=== PATIENT | female | born 1975 | race Two or more races ===

== ENCOUNTER 2017-09-12 13:37 | Emergency (ER) | payer OTHER ==
[~2017-09-12] VITALS: Ht 157.5 cm; Wt 63.5 kg
[2017-09-12 13:42] VITALS: BP 117/77
[2017-09-12] MEDS ORDERED: KETOROLAC TROMETHAMINE INJ 60 MG/2 ML VIAL IM ONE ×2 (14:26→14:30)
== END 2017-09-12 15:13 | disposition home or self-care (01) ==
LOC: ER 13:38
DX: R51 Headache (principal); E03.9 Hypothyroidism, unspecified
CPT/HCPCS: 96372; 99283; A4606; J1885; Z7610

== ENCOUNTER 2018-06-05 22:37 | Emergency (ER) | payer OTHER ==
[~2018-06-05] VITALS: Ht 157.5 cm; Wt 63.5 kg
[2018-06-05 23:57] VITALS: BP 111/59
== END 2018-06-06 02:06 | disposition home or self-care (01) ==
LOC: ER 22:42
DX: S62.002A Unspecified fracture of navicular [scaphoid] bone of left wrist, initial encounter for closed fracture (principal); E03.9 Hypothyroidism, unspecified; W20.8XXA Other cause of strike by thrown, projected or falling object, initial encounter; Y93.89 Activity, other specified; Y92.89 Other specified places as the place of occurrence of the external cause; Y99.8 Other external cause status
CPT/HCPCS: 29125; 73110; 73130; 99283; A4606

== ENCOUNTER 2018-06-10 07:45 | Emergency (ER) | payer OTHER ==
[~2018-06-10] VITALS: Ht 157.5 cm; Wt 63.5 kg
[2018-06-10] MEDS ORDERED: ONDANSETRON HCL/PF 4 MG/2 ML VIAL ONE (08:12)
[2018-06-10 08:24] LABS: BASOPHILS # (AUTO) 0.1 /CMM (0.0-0.2); BASOPHILS % (AUTO) 0.8 % (0.0-2.0); EOSINOPHILS % (AUTO) 6.7 % (0.0-6.0); HEMATOCRIT 33 % (33-45); HEMOGLOBIN 10.1 g/dL (11.5-14.8); LYMPHOCYTES % (AUTO) 30.4 % (20.0-44.0); MEAN CORPUSCULAR HGB CONC 31 g/dl (31.0-36.0); MEAN CORPUSCULAR VOLUME 75 fL (82-100); MONOCYTES # (AUTO) 0.5 /CMM (0.1-1.30); MONOCYTES % (AUTO) 7.7 % (2.0-12.0); NEUTROPHILS # (AUTO) 3.5 /CMM (1.8-8.9); NEUTROPHILS % (AUTO) 54.4 % (43.0-81.0); PLATELET COUNT (AUTO) 308 /CMM (150-450); RED BLOOD CELL COUNT(AUTO) 4.39 MIL/uL (4.0-5.2); WHITE BLOOD COUNT (AUTO) 6.5 K/uL (4.3-11.0)
[2018-06-10] MEDS ORDERED: IV NS 0.9% 500 ML BAG IV ONE (08:30)
[2018-06-10] MEDS ORDERED: ONDANSETRON HCL/PF 4 MG/2 ML VIAL IVP ONE (08:30)
[2018-06-10 08:31] LABS: CALCIUM, SERUM 9.1 mg/dL (8.5-10.1); CREATININE 0.8 mg/dL (0.6-1.3); POTASSIUM 3.9 mmol/L (3.5-5.1)
[2018-06-10 08:37] LABS: ALBUMIN 3.7 g/dL (3.4-5.0); BILIRUBIN,DIRECT 0.1 mg/dL (0.0-0.2); BILIRUBIN,TOTAL 0.4 mg/dL (0.2-1.0)
[2018-06-10 08:57] LABS: THYROID STIMULATING HORMONE 64.431 uIU/mL (0.358-3.74)
--- NOTE | 2018-06-10 09:23 | NUR ---
for discharge- ACI given verbalized understanding. Home ambulatory in stable condition. No acute distress
[2018-06-10 09:28] VITALS: BP 114/81
--- NOTE | 2018-06-10 09:30 | NUR ---
Patient discharged to home in stable condition. Written and verbal after care instructions given. Patient verbalizes understanding of instruction.IV removed. Catheter intact and site benign. Pressure and 4x4 applied to site. No bleeding noted.
== END 2018-06-10 09:29 | disposition home or self-care (01) ==
LOC: ER 07:47
DX: R53.1 Weakness (principal); R42 Dizziness and giddiness; E03.9 Hypothyroidism, unspecified
CPT/HCPCS: 36415; 80048; 80076; 83690; 84439; 84443; 84481; 85025; 96374; 99283; J2405; J7040

== ENCOUNTER 2018-07-03 02:41 | Inpatient (IN) | payer OTHER ==
[~2018-07-03] VITALS: Ht 157.5 cm; Wt 68.5 kg
[2018-07-03] MEDS ORDERED: ONDANSETRON HCL/PF 4 MG/2 ML VIAL ONE (03:21)
[2018-07-03] MEDS ORDERED: PANTOPRAZOLE 40 MG VIAL ONE (03:21)
[2018-07-03] MEDS ORDERED: IV NS 0.9% 1,000 ML BAG IV ONE (03:30)
[2018-07-03] MEDS ORDERED: PANTOPRAZOLE 40 MG VIAL IV ONE (03:30)
[2018-07-03] MEDS ORDERED: ONDANSETRON HCL/PF 4 MG/2 ML VIAL IVP ONE (03:30)
--- NOTE | 2018-07-03 03:30 | NUR ---
BIBRA 98%. AOX4. ACCOMPANIED BY . PATIENT VERBALIZING OF ABDOMINAL PAIN AND FRESH RED BLOOD STOOL. NO SOB. BREATHING EVEN AND UNLABORED. AFEBRILE. -N/V/D. IV SITE PLACED IN RAC G 20 INTACT AND PATENT. BLOOD DRAWN. AWARE
[2018-07-03 03:39] LABS: CALCIUM, SERUM 8.8 mg/dL (8.5-10.1); CARBON DIOXIDE 25 mmol/L (21-32); CHLORIDE 104 mmol/L (98-107); CREATININE 0.8 mg/dL (0.6-1.3); GLUCOSE 97 mg/dL (74-106); POTASSIUM 3.8 mmol/L (3.5-5.1); SODIUM SERUM 137 mmol/L (136-145); UREA NITROGEN, BLOOD 9 mg/dL (7-18)
[2018-07-03 03:42] LABS: APPEARANCE,URINE Clear (CLEAR); BILIRUBIN,URINE Negative (NEGATIVE); BLOOD, URINE Trace-lysed Ery/uL (NEGATIVE); COLOR,URINE Yellow (YELLOW); KETONES,URINE Negative (NEGATIVE); LEUKOCYTE ESTERASE ,URINE Negative (NEGATIVE); NITRITE, URINE Negative (NEGATIVE); PROTEIN,URINE Negative (NEGATIVE); UGLUCOSE Negative (NEGATIVE); UROBILINOGEN,URINE 0.2 EU/dL (0.2)
[2018-07-03 03:45] LABS: ALANINE AMINOTRANSFERASE 22 U/L (12-78); ALBUMIN 3.8 g/dL (3.4-5.0); ALKALINE PHOSPHATASE 91 U/L (46-116); ASPARTATE AMINOTRANSFERASE 14 U/L (15-37); BILIRUBIN,DIRECT 0.1 mg/dL (0.0-0.2); BILIRUBIN,TOTAL 0.2 mg/dL (0.2-1.0); LIPASE 271 U/L (73-393); TOTAL PROTEIN, SERUM 8.1 g/dL (6.4-8.2)
[2018-07-03 03:51] LABS: BASOPHILS % (AUTO) 0.4 % (0.0-2.0); EOSINOPHILS % (AUTO) 4.9 % (0.0-6.0); HEMATOCRIT 32 % (33-45); HEMOGLOBIN 9.8 g/dL (11.5-14.8); LYMPHOCYTES # (AUTO) 1.8 /CMM (0.8-4.8); LYMPHOCYTES % (AUTO) 21.2 % (20.0-44.0); MEAN CORPUSCULAR HGB CONC 31 g/dl (31.0-36.0); MEAN CORPUSCULAR VOLUME 72 fL (82-100); MONOCYTES # (AUTO) 0.5 /CMM (0.1-1.30); MONOCYTES % (AUTO) 6.1 % (2.0-12.0); NEUTROPHILS # (AUTO) 5.8 /CMM (1.8-8.9); NEUTROPHILS % (AUTO) 67.4 % (43.0-81.0); PLATELET COUNT (AUTO) 287 /CMM (150-450); RED BLOOD CELL COUNT(AUTO) 4.37 MIL/uL (4.0-5.2); WHITE BLOOD COUNT (AUTO) 8.7 K/uL (4.3-11.0)
[2018-07-03 03:58] LABS: BACTERIA,URINE None seen /HPF (None Seen); MUCUS,URINE Few /LPF (None Seen); RBC,URINE 0-2 /HPF (0-2); SQUAMOUS EPITHELIAL CELL,UR Moderate /HPF (None Seen); WBC,URINE 0-2 /HPF (0-3)
--- NOTE | 2018-07-03 05:01 | NUR ---
PICKED UP FOR CT ABDOMEN
[2018-07-03] MEDS ORDERED: LEVO175T7 PO (06:09)
--- NOTE | 2018-07-03 06:24 | NUR ---
TRANSFFERED NED TO [facility] FOR CONINUITY OF CARE, ACCOMPANIED BY . REPORT GIVEN TO LEONEL BAPTISTE
[2018-07-03 06:30] VITALS: BP 105/71
[2018-07-03] MEDS ORDERED: Z GUARD REMEDY 2 OZ OINT TP PRN (06:30)
[2018-07-03] MEDS ORDERED: MAGNESIUM HYDROXIDE 30 ML UDC PO PRN (06:30)
[2018-07-03] MEDS ORDERED: ONDANSETRON HCL/PF 4 MG/2 ML VIAL IVP PRN (06:30)
[2018-07-03] MEDS ORDERED: MAG HYDROX/AL HYDROX/SIMETH 30 ML UDC PO PRN (06:30)
[2018-07-03] MEDS ORDERED: ACETAMINOPHEN 325 MG TABLET PO PRN (06:30)
[2018-07-03] MEDS ORDERED: HYDROCODONE/APAP 5/325MG 1 EACH TABLET PO PRN (06:30)
--- NOTE | 2018-07-03 06:30 | NUR ---
MS RN NOTE: RECEIVE PATIENT FROM ER, NO ACUTE DISTRESS NOTED. BREATHING EVEN AND UNLABORED, NO SOB NOTED. FAMILY AT BEDSIDE. IV TO RAC IN PLACE. VITAL SIGN STABLE. ORIENTED PATIENT TO ROOM AND USE OF CALL LIGHT. BED LOCKED AND IN LOWEST POSITION, CALL LIGHT IN REACH. WILL ENDORSE TO DAY NURSE TO CONTINUE WITH PLAN OF CARE.
--- NOTE | 2018-07-03 07:30 | NUR ---
RN MS NOTES PT IN BED, AWAKE, ALERT AND ORIENTED, NO COMPLAINT OF PAIN AT THIS TIME, RESPIRATIONS NORMAL, CALL LIGHT WITHIN REACH, AT BEDSIDE, NEEDS ATTENDED, NO EPISODE OF RECTAL BLEEDING AT THIS TIME, NO COMPLAINT OF NAUSEA, VOMITING OR DIARRHEA.
[2018-07-03 08:00] VITALS: BP 99/68
[2018-07-03] MEDS: LEVOTHYROXINE SODIUM 175 MCG TABLET PO SCH (08:56)
[2018-07-03] MEDS: PANTOPRAZOLE 40 MG VIAL IV SCH ×2 (08:57→16:45)
[2018-07-03] MEDS: IV NS 0.9% 1,000 ML IV PRN (08:57)
--- NOTE | 2018-07-03 13:00 | NUR ---
RN MS NOTES PT IN BED, AWAKE, ALERT AND ORIENTED, AT BEDSIDE, PT SEEN BY DR. MONK, PLAN OF CARE DISCUSSED WITH PT, VERBALIZED UNDERSTANDING, PT DOES NOT COMPLAIN OF PAIN AT THIS TIME, AWAITING GI CONSULT, ANTOINE NAIR INFORMED, PER MD OK TO START ON CLEAR LIQUID DIET, TOLERATING WELL.
[2018-07-03 16:00] VITALS: BP 101/62
[2018-07-03] MEDS ORDERED: MAGNESIUM CITRATE 296 ML BOTTLE PO ONE (17:30)
[2018-07-03] MEDS ORDERED: NA PHOS,M-B/NA PHOS,DI-BA 1 EA ENEMA RC PRN (17:30)
[2018-07-03] MEDS ORDERED: PEG 3350/NA SULF,BICARB,CL/KCL 4,000 ML BOTTLE PO ONE (17:30)
[2018-07-03 17:55] LABS: IRON, SERUM 13 ug/dl (50-175); TOTAL IRON BINDING CAPACITY 434 ug/dl (250-450)
[2018-07-03 18:14] LABS: FERRITIN 4 ng/mL (8-388)
--- NOTE | 2018-07-03 19:00 | NUR ---
RN MS NOTES PT IN BED, AWAKE, ALERT AND ORIENTED, NO COMPLAINT OF PAIN, NOT IN DISTRESS, NO EPISODE OF NAUSEA/VOMITING OR DIARRHEA, NO EPISODE OF RECTAL BLEEDING, SEEN BY FIELD REIMBURSEMENT MANAGER ANTOINE, ORDERED FOR EGD/COLONOSCOPY FOR TOMORROW, PROCEDURE EXPLAINED TO PT, VERBALIZED UNDERSTANDING, CONSENTS SIGNED, ALL NEEDS ATTENDED.
--- NOTE | 2018-07-03 19:15 | NUR ---
MS POLY INITIAL NOTES RECEIVED REPORT FROM AM NURSE AND SEEN PT IN HER ROOM AWAKE SITTING IN THE CHAIR AND STILL DRINKING THE GOLYTELY ORDERED. DENIES ANY ABDOMINAL PAIN AND STILL NO BOWEL MOVEMENT. PT AWARE OF HER PROCEDURE ADRIANA. ALSO AWARE THAT SHE WILL BE NPO AFTER MIDNIGHT AND ALSO TOLD HER THAT IF HER BOWEL STILL NOT CLEAR WE WILL ADMINISTER ENEMA AND PT UNDERSTOOD WELL . IVF NS AT 75ML/HR STILL INFUSING ON HER RIGHT AC PATENT AND INTACT. KEPT HER WARM AND COMFORTABLE AT ALL TIMES. PLACE CALL LIGHT AT REACH. WILL CONTINUE MONITORING.
[2018-07-03 20:00] VITALS: BP 97/60
[2018-07-03 20:00] LABS: OCCULT BLOOD STOOL NEGATIVE (NEGATIVE)
[2018-07-03 20:13] VITALS: BP 97/60
--- NOTE | 2018-07-04 | NUR ---
MS FIRE ALARM REPAIRER NOTES PT RESTING COMFORTABLY IN BED WITH IVF NS AT 75ML/HR INFUSING AT THIS TIME. STILL NOT CLEAR HER BOWEL MOVEMENT , NO N/V NOTED. PT NPO AT THIS TIME. KEPT HER WARM AND COMFORTABLE AT ALL TIMES. AT THE BEDSIDE. WILL CONTINUE MONITORING.
[2018-07-04] MEDS: IV NS 0.9% 1,000 ML IV PRN ×2 (04:20→10:27)
[2018-07-04 06:30] LABS: BASOPHILS % (AUTO) 0.8 % (0.0-2.0); EOSINOPHILS % (AUTO) 8.8 % (0.0-6.0); HEMATOCRIT 28 % (33-45); HEMOGLOBIN 8.8 g/dL (11.5-14.8); LYMPHOCYTES # (AUTO) 1.4 /CMM (0.8-4.8); LYMPHOCYTES % (AUTO) 31.2 % (20.0-44.0); MEAN CORPUSCULAR HGB CONC 32 g/dl (31.0-36.0); MEAN CORPUSCULAR VOLUME 72 fL (82-100); MONOCYTES # (AUTO) 0.4 /CMM (0.1-1.30); MONOCYTES % (AUTO) 9.2 % (2.0-12.0); NEUTROPHILS # (AUTO) 2.3 /CMM (1.8-8.9); PLATELET COUNT (AUTO) 256 /CMM (150-450); RED BLOOD CELL COUNT(AUTO) 3.85 MIL/uL (4.0-5.2); WHITE BLOOD COUNT (AUTO) 4.5 K/uL (4.3-11.0)
[2018-07-04 06:34] LABS: CALCIUM, SERUM 8.8 mg/dL (8.5-10.1); CREATININE 0.7 mg/dL (0.6-1.3); MAGNESIUM 2.3 mg/dL (1.8-2.4); POTASSIUM 3.8 mmol/L (3.5-5.1)
[2018-07-04 06:46] LABS: THYROID STIMULATING HORMONE 0.635 uIU/mL (0.358-3.74)
[2018-07-04] MEDS: LEVOTHYROXINE SODIUM 175 MCG TABLET PO SCH (07:30)
--- NOTE | 2018-07-04 07:30 | NUR ---
RN MS NOTES PT IN BED,AWAKE, ALERT AND ORIENTED, NO COMPLAINT OF PAIN, RESPIRATIONS NORMAL, AT BEDSIDE, CALL LIGHT WITHIN REACH, PT PREPARED FOR EGD/COLONOSCOPY, NEEDS ATTENDED.
--- NOTE | 2018-07-04 07:47 | NUR ---
MS MANAGER LOGISTIC CLOSING NOTES PT AWAKE AND ALERT , JUST DONE HER MORNING CARE . DENIES ANY PAIN OR ANY DISCOMFORT. STABLE PALOMA THE NIGHT. AND PER PT BOWEL LIQUID BUT CLEAR YELLOW IN COLOR NOT CLEAR LIKE WATER, NO PARTICLES . IVF STILL INFUSING AND NPO SINCE 12 MIDNIGHT. ALL NEEDS MET AND REMAINS AT THE BEDSIDE AND SAYING THANK YOU . KEPT HER WARM AND COMFORTABLE AT ALL TIMES. PT AWARE THAT OR NURSE WILL PICK HER UP FOR HER PROCEDURE. ENDORSE TO AM NURSE FOR CONTINUITY OF CARE.
[2018-07-04 08:00] VITALS: BP 112/62
--- NOTE | 2018-07-04 08:17 | NUR ---
RN MEDSURXavier NOTES PT WAS SEEN BY DR. MONK TO DISCUSSED PLAN OF CARE AND PT PT VERBALZE UNDERSTANDING. PT PICKED UP BY OR STAFF FOR COLONOSCOPY AND EGD PROCEDURE. PT HAS NO PAIN AND ALERT ORIENTED X4. RESPIRATION IS NORMAL.
[2018-07-04 10:00] VITALS: BP 100/51
--- NOTE | 2018-07-04 10:00 | NUR ---
RN MS NOTES PT BACK FROM PROCEDURE, DROWSY, AROUSABLE, NO COMPLAINT OF PAIN, RESPIRATION NORMAL, VITAL SIGNS TAKEN AND RECORDED, POST OP ORDERS RECEIVED, NOTED AND CARRIED OUT, ASSISTED PT TO BATHROOM, SAFETY PRECAUTIONS OBSERVED, WILL CONTINUE TO MONITOR.
[2018-07-04] MEDS: PANTOPRAZOLE 40 MG VIAL IV SCH ×2 (12:00→17:45)
[2018-07-04 16:00] VITALS: BP 105/59
--- NOTE | 2018-07-04 16:00 | NUR ---
RN MS NOTES AT AROUND 1030 AM, PT IN BED, RESTING, NOT IN PAIN OR DISTRESS, PT'S AT BEDSIDE, ASSISTED PT TO BATHROOM AND BACK TO BED, REPOSITIONED AND KEPT COMFORTABLE, ACCIDENTALLY ATTACHED PT TO IV FLUIDS OF D5 1/2 NS OF PT IN NEXT BED, IMMEDIATELY DISCONNECTED PT FROM IV FLUIDS AFTER NOTING ERROR AFTER A FEW MINUTES, EXPLAINED INCIDENT TO PT, CHARGE NURSE INFORMED, DR. HUNTLEY INFORMED, LAB WORKS ORDERED STAT AND WAS DRAWN, EXPLAINED PROTOCOL TO PT AND , VERBALIZED UNDERSTANDING.
--- NOTE | 2018-07-04 18:50 | NUR ---
Pt was seen by the HYDROMETEOROLOGIST regarding EGD colonoscopy procedure. Pt diet is full liquid. Medications has been given. no pain present at this time. IV fluid NS still infusing. IV site is intact, clean and infusing well. Comfort care by reposition the patient and talking to the patient. resource efficiency manager at the bed side. Bed at low position and call light is within reach.
[2018-07-04 19:19] LABS: C-REACTIVE PROTEIN < 0.2 mg/dL (0.0-0.9)
[2018-07-04 20:00] VITALS: BP 105/68
--- NOTE | 2018-07-04 20:00 | NUR ---
MS ANIMAL CHIROPRACTOR INITIAL NOTES RECEIVED REPORT FROM AM NURSE AND SEEN PT IN BED AWAKE AND ALERT, DENIES ANY PAIN OR ANY DISCOMFORT. STILL WITH IVF NS AT 75ML/HR INFUSING ON HER RIGHT AC , PATENT AND INTACT. SHE'S IN CLEAR LIQUID DIET AND TOLERATED WELL NO N.V NOTED. WILL CONTINUE MONITORING. PLACE CALL LIGHT AT REACH.
--- NOTE | 2018-07-04 21:50 | NUR ---
MS POLY NOTES SPOKE TO DR DIAZ REGARDING THE RESULT OF PATIENT LAB TEST PT 12.9H, INR1.25H APTT 24.5 AND FIBRINOGEN 259. GOT ORDER TO REPEAT PT, INR, APTT IN AM .
--- NOTE | 2018-07-05 | NUR ---
MS POLY NOTES PT SLEEPING COMFORTABLY IN BED WITHOUT ANY ACUTE DISTRESS NOTED. IVF STILL INFUSING. WILL CONTINUE MONITORING. PLACE CALL LIGHT AT REACH.
[2018-07-05] MEDS: IV NS 0.9% 1,000 ML IV PRN (02:54)
--- NOTE | 2018-07-05 05:14 | NUR ---
MS CONDOMINIUM ASSOCIATION MANAGER NOTES PT REMAIN ASLEEP , RESPIRATION EVEN AND NON LABORED. IVF STILL INFUSING. WILL CONTINUE MONITORING.
--- NOTE | 2018-07-05 06:53 | NUR ---
MS CABIN MAN CLOSING NOTES PT AWAKE AND ALERT RIGHT NOW AND WATCHING TV THIS TIME. DENIES ANY PAIN OR ANY DISCOMFORT. SLEPT WELL AND STABLE PALOMA THE NIGHT WITH HIS AT THE BEDSIDE. IVF NS AT 75ML/HR STILL INFUSING ON HER RIGHT AC. NO REDNESS NOTED. KEPT HER WARM AND COMFORTABLE AT ALL TIMES. PLACE CALL LIGHT AT REACH. ENDORSE TO AM NURSE FOR CONTINUITY OF CARE.
[2018-07-05] MEDS: PANTOPRAZOLE 40 MG VIAL IV SCH (08:34)
[2018-07-05] MEDS: LEVOTHYROXINE SODIUM 175 MCG TABLET PO SCH (08:34)
[2018-07-05 08:37] VITALS: BP 115/66
[2018-07-05] MEDS ORDERED: PHYTONADIONE INJ 10 MG/1 ML AMPUL SQ ONE (13:30)
[2018-07-05] MEDS ORDERED: SOD FERRIC GLUC 125 MG in IV NS 0.9% 100 ML IV SCH (14:00)
--- NOTE | 2018-07-05 14:25 | NUR ---
PATIENT CLEARED FOR D/C TO HOME BY . PATIENT A/O X4 , VS ARE STABLE AND WITHIN NORMAL RANGE, BREATHING UNLABORED ON ROOM AIR, NOT IN ANY DISTRESS. PATIENT RECEIVED D/C INSTRUCTIONS AND VERBALIZED UNDERSTANDING: WILL F/U WITH PCP IN ONE WEEK. PT'S SKIN INTACT.IV LINE REMOVED, ID BAND REMOVED. PATIENT SIGHED VALUABLES AND D/C FORMS. ALL BELONGINGS WITH THE PATIENT. PATIENT SAFELY TRANSFERRED TO [facility] BY NURSE AND HER .
== END 2018-07-05 14:25 | disposition home or self-care (01) | DRG 254 ==
LOC: ER 02:45 → MED 05:44
PROVIDERS: ADMIT Internal Medicine; ATTEND Internal Medicine
PROC: 0DB78ZX Excision of Stomach, Pylorus, Via Natural or Artificial Opening Endoscopic, Diagnostic (ICD-10-PCS; principal; 2018-07-04)
PROC: 0DJD8ZZ Inspection of Lower Intestinal Tract, Via Natural or Artificial Opening Endoscopic (ICD-10-PCS; principal; 2018-07-04)
DX: K64.8 Other hemorrhoids (principal); D62 Acute posthemorrhagic anemia; D68.9 Coagulation defect, unspecified; E03.9 Hypothyroidism, unspecified; K64.4 Residual hemorrhoidal skin tags; K20.9 Esophagitis, unspecified; D50.9 Iron deficiency anemia, unspecified; K44.9 Diaphragmatic hernia without obstruction or gangrene
CPT/HCPCS: 36415; 80048-TC; 80061-TC; 80076-TC; 81000-TC; 82272-TC; 82378; 82728-TC; 83540-TC; 83605-TC; 83690-TC; 83735-TC; 84100-TC; 84443-TC; 84484-TC; 84702-TC; 84703-TC; 85025-TC; 85385-TC; 85610-TC; 85730-TC; 86140-TC; 86431-TC; 86706; 86709; 86850-TC; 87081-TC; 87806; 88304-TC; C9113; G0378; J2405; J2704; J2916; J3430; J7030

== ENCOUNTER 2019-01-05 21:03 | Emergency (ER) | payer OTHER ==
[~2019-01-05] VITALS: Ht 157.5 cm; Wt 66.2 kg
[~2019-01-05 21:03] MED LIST: LEVO175T7 PO
[2019-01-05 21:10] VITALS: BP 125/84
== END 2019-01-05 21:32 | disposition home or self-care (01) ==
LOC: ER 21:06
DX: J02.0 Streptococcal pharyngitis (principal); E03.9 Hypothyroidism, unspecified; Z79.899 Other long term (current) drug therapy

== ENCOUNTER 2019-02-26 16:32 | Emergency (ER) | payer OTHER ==
[~2019-02-26] VITALS: Ht 157.5 cm; Wt 63.5 kg
[2019-02-26 17:11] VITALS: BP 103/68
--- NOTE | 2019-02-26 18:02 | NUR ---
Patient discharged to home in stable condition. Written and verbal after care instructions given. Patient verbalizes understanding of instruction.
== END 2019-02-26 18:03 | disposition home or self-care (01) ==
LOC: ER 16:33
DX: H10.89 Other conjunctivitis (principal); B99.9 Unspecified infectious disease; E03.9 Hypothyroidism, unspecified; Z79.899 Other long term (current) drug therapy

== ENCOUNTER 2019-03-23 18:49 | Emergency (ER) | payer OTHER ==
[~2019-03-23] VITALS: Ht 157.5 cm; Wt 68.0 kg
[2019-03-23 18:58] VITALS: BP 97/62
[2019-03-23] MEDS ORDERED: ACETAMINOPHEN ES 500 MG TABLET ONE (19:10)
[2019-03-23] MEDS ORDERED: IBUPROFEN 600 MG TABLET PO ONE ×2 (19:17→19:30)
[2019-03-23] MEDS ORDERED: ACETAMINOPHEN ES 500 MG TABLET PO ONE (19:30)
== END 2019-03-23 20:37 | disposition home or self-care (01) ==
LOC: ER 18:50
DX: J06.9 Acute upper respiratory infection, unspecified (principal); E03.9 Hypothyroidism, unspecified; Z79.899 Other long term (current) drug therapy

== ENCOUNTER 2019-05-12 11:53 | Emergency (ER) | payer OTHER ==
[~2019-05-12] VITALS: Ht 157.5 cm; Wt 66.7 kg
[2019-05-12 12:04] VITALS: BP 103/72
--- NOTE | 2019-05-12 12:28 | NUR ---
Patient discharged to home in stable condition. Written and verbal after care instructions given. Patient verbalizes understanding of instruction.
== END 2019-05-12 12:28 | disposition home or self-care (01) ==
LOC: ER 11:57
DX: S01.512A Laceration without foreign body of oral cavity, initial encounter (principal); E03.9 Hypothyroidism, unspecified; Z79.899 Other long term (current) drug therapy; W22.8XXA Striking against or struck by other objects, initial encounter; Y93.89 Activity, other specified; Y92.89 Other specified places as the place of occurrence of the external cause; Y99.8 Other external cause status

== ENCOUNTER 2023-07-20 16:14 | Emergency (ER) | payer OTHER ==
[~2023-07-20] VITALS: Ht 157.5 cm; Wt 74.8 kg
[2023-07-20 16:22] VITALS: TEMP 98.5
[2023-07-20 17:03] LABS: BASOPHILS % (AUTO) 0.6 % (0.0-2.0); EOSINOPHILS # (AUTO) 0.4 K/uL (0.0-0.7); EOSINOPHILS % (AUTO) 5.6 % (0.0-6.0); HEMATOCRIT 41 % (33-45); HEMOGLOBIN 13.3 g/dL (11.5-14.8); LYMPHOCYTES # (AUTO) 1.6 K/uL (0.8-4.8); LYMPHOCYTES % (AUTO) 22.2 % (20.0-44.0); MEAN CORPUSCULAR HEMOGLOBIN 27 PG (26.0-33.0); MEAN CORPUSCULAR HGB CONC 33 g/dl (31.0-36.0); MEAN CORPUSCULAR VOLUME 83 fL (82-100); MONOCYTES # (AUTO) 0.6 K/uL (0.1-1.30); MONOCYTES % (AUTO) 8.3 % (2.0-12.0); NEUTROPHILS # (AUTO) 4.7 K/uL (1.8-8.9); NEUTROPHILS % (AUTO) 63.3 % (43.0-81.0); PLATELET COUNT (AUTO) 210 K/uL (150-450); RED BLOOD CELL COUNT(AUTO) 4.96 MIL/uL (4.0-5.2); RED CELL DISTRIBUTION WIDTH 12.7 % (11.5-15.0); WHITE BLOOD COUNT (AUTO) 7.4 K/uL (4.3-11.0)
[2023-07-20 17:15] LABS: CALCIUM, SERUM 9.7 mg/dL (8.5-10.1); CARBON DIOXIDE 29 mmol/L (21-32); CHLORIDE 104 mmol/L (98-107); GLUCOSE 96 mg/dL (74-106); POTASSIUM 3.8 mmol/L (3.5-5.1); SODIUM SERUM 136 mmol/L (136-145); UREA NITROGEN, BLOOD 15 mg/dL (7-18)
[2023-07-20 18:20] VITALS: BP 118/74; O2SAT 98
== END 2023-07-20 18:20 | disposition home or self-care (01) ==
LOC: ER 16:21
DX: R06.02 Shortness of breath (principal); E03.9 Hypothyroidism, unspecified; Z20.822 Contact with and (suspected) exposure to COVID-19
CPT/HCPCS: 36415; 71045-TC; 80048-TC; 84484-TC; 85025-TC

== ENCOUNTER 2024-05-08 11:40 | Emergency (ER) | payer MEDICAID, OTHER ==
[~2024-05-08] VITALS: Ht 157.5 cm; Wt 75.7 kg
[2024-05-08] MEDS ORDERED: CEFTRIAXONE 1GM BAG (ER ONLY) 50 ML IV ONE (12:33)
[2024-05-08] MEDS: CEFTRIAXONE 1GM BAG (ER ONLY) 1 GM/50 ML PIGGYBACK IV ONE (12:38)
[2024-05-08] MEDS: IV NS 0.9% 1,000 ML BAG IV ONE (12:38)
[2024-05-08 12:43] LABS: BASOPHILS # (AUTO) 0.1 K/uL (0.0-0.2); BASOPHILS % (AUTO) 0.5 % (0.0-2.0); EOSINOPHILS # (AUTO) 0.3 K/uL (0.0-0.7); EOSINOPHILS % (AUTO) 2.6 % (0.0-6.0); HEMATOCRIT 43 % (33-45); HEMOGLOBIN 14.1 g/dL (11.5-14.8); LYMPHOCYTES # (AUTO) 1.8 K/uL (0.8-4.8); LYMPHOCYTES % (AUTO) 16.6 % (20.0-44.0); MEAN CORPUSCULAR HEMOGLOBIN 27 PG (26.0-33.0); MEAN CORPUSCULAR HGB CONC 33 g/dl (31.0-36.0); MEAN CORPUSCULAR VOLUME 82 fL (82-100); MONOCYTES # (AUTO) 0.6 K/uL (0.1-1.30); MONOCYTES % (AUTO) 5.8 % (2.0-12.0); NEUTROPHILS # (AUTO) 8.1 K/uL (1.8-8.9); NEUTROPHILS % (AUTO) 74.5 % (43.0-81.0); PLATELET COUNT (AUTO) 216 K/uL (150-450); RED BLOOD CELL COUNT(AUTO) 5.24 MIL/uL (4.0-5.2); RED CELL DISTRIBUTION WIDTH 13.1 % (11.5-15.0); WHITE BLOOD COUNT (AUTO) 10.9 K/uL (4.3-11.0)
[2024-05-08 13:01] LABS: APPEARANCE,URINE CLEAR (CLEAR); BILIRUBIN,URINE NEGATIVE (NEGATIVE); BLOOD, URINE 2+ Ery/uL (NEGATIVE); COLOR,URINE YELLOW (YELLOW); KETONES,URINE NEGATIVE (NEGATIVE); LEUKOCYTE ESTERASE ,URINE 2+ (NEGATIVE); NITRITE, URINE NEGATIVE (NEGATIVE); PROTEIN,URINE NEGATIVE (NEGATIVE); UGLUCOSE NEGATIVE (NEGATIVE); UROBILINOGEN,URINE 0.2 EU/dL (0.2)
[2024-05-08 13:02] LABS: PREGNANCY TEST URINE QUAL NEGATIVE (NEGATIVE)
[2024-05-08 13:03] LABS: CALCIUM, SERUM 9.9 mg/dL (8.5-10.1); CREATININE 0.7 mg/dL (0.6-1.3); POTASSIUM 3.7 mmol/L (3.5-5.1)
[2024-05-08 13:08] LABS: ALBUMIN 3.6 g/dL (3.4-5.0); BILIRUBIN,TOTAL 0.6 mg/dL (0.2-1.0)
[2024-05-08 13:25] LABS: BACTERIA,URINE Moderate /HPF (None Seen)
[2024-05-08 13:26] LABS: ADD URINE CULTURE YES; WBC,URINE 21-50 /HPF (0-3)
[2024-05-08 13:28] LABS: SQUAMOUS EPITHELIAL CELL,UR Few /HPF (None Seen)
[2024-05-08] MEDS ORDERED: CEFP200T14 PO (13:33)
[2024-05-08 14:15] VITALS: BP 118/78; TEMP 98.3; O2SAT 99
== END 2024-05-08 14:15 | disposition home or self-care (01) ==
LOC: ER 11:52
DX: N39.0 Urinary tract infection, site not specified (principal); E03.9 Hypothyroidism, unspecified; Z79.890 Hormone replacement therapy
CPT/HCPCS: 99284; 96365; 85025; 87086; 84703; 81001; 36415; 80053; J0696

== ENCOUNTER 2024-11-24 18:07 | Emergency (ER) | payer MEDICAID ==
[~2024-11-24] VITALS: Ht 157.5 cm; Wt 74.8 kg
[~2024-11-24 18:07] MED LIST changes: +CEFP200T14 PO
[2024-11-24 18:24] VITALS: BP 112/80; TEMP 98.3; O2SAT 99
[2024-11-24] MEDS ORDERED: LIDOCAINE 5% (PATCH) 1 EA PATCH TP ONE (18:45)
[2024-11-24] MEDS: LIDOCAINE 5% (PATCH) 1 EA PATCH TP SCH (18:47)
[2024-11-24] MEDS ORDERED: LIDO30AD10 TP (19:00)
== END 2024-11-24 19:04 | disposition home or self-care (01) ==
LOC: ER 18:12
DX: S29.012A Strain of muscle and tendon of back wall of thorax, initial encounter (principal); E03.9 Hypothyroidism, unspecified; V89.2XXA Person injured in unspecified motor-vehicle accident, traffic, initial encounter; Y93.89 Activity, other specified; Y92.410 Unspecified street and highway as the place of occurrence of the external cause; Y99.8 Other external cause status